=== PATIENT | male | born 1945 | race Caucasian/White ===

== ENCOUNTER 2016-08-24 01:21 | Observation (INO) | payer OTHER ==
--- NOTE | 2016-08-24 01:28 | EDPHY ---
H & P Time Seen by Provider: 08/24/16 01:26 HPI/ROS: CHIEF COMPLAINT: Forehead laceration HISTORY OF PRESENT ILLNESS: Patient is a 71-year-old man who comes to the emergency department by EMS complaining forehead laceration. He states that he fell earlier this evening. He does not remember the fall. He thinks that he tripped. He does have a seizure disorder and takes Dilantin. He does not think that he had a seizure. He does take Dilantin faithfully. He does not take any blood thinners. Denies neck pain back pain Center. He is moving all extremities. He has been ambulatory. He does state that he had for 5 glasses of wine this evening but does not think that he is intoxicated or that that is why he fell. REVIEW OF SYSTEMS: Constitutional: denies: chills, fever, recent illness, recent injury EENTM: See HPI denies: blurred vision, double vision, nose congestion Respiratory: denies: cough, shortness of breath Cardiac: denies: chest pain, irregular heart rate, lightheadedness, palpitations Gastrointestinal/Abdominal: denies: abdominal pain, diarrhea, nausea, vomiting, blood streaked stools Genitourinary: denies: dysuria, frequency, hematuria, pain Musculoskeletal: denies: joint pain, muscle pain Skin: denies: lesions, rash, jaundice, bruising Neurological: denies: headache, numbness, paresthesia, tingling, dizziness, weakness Hematologic/Lymphatic: denies: blood clots, easy bleeding, easy bruising Immunologic/allergic: denies: HIV/AIDS, transplant EXAM: GENERAL: Well-appearing, well-nourished and in no acute distress. HEAD: Atraumatic, normocephalic. EYES: Extraocular muscles intact, Pupils equal round and reactive to light, extraocular movements intact, sclera anicteric, conjunctiva are normal. ENT: TMs normal, nares patent, oropharynx clear without exudates. Moist mucous membranes. NECK: Normal range of motion, supple without lymphadenopathy or JVD. LUNGS: Breath sounds clear to auscultation bilaterally and equal. No wheezes rales or rhonchi. HEART: Regular rate and rhythm without murmurs, rubs or gallops. ABDOMEN: Soft, nontender, normoactive bowel sounds. No guarding, no rebound. No masses appreciated. BACK: No CVA tenderness, no spinal tenderness, step-offs or deformities EXTREMITIES: Normal range of motion, no pitting or edema. No clubbing or cyanosis. NEUROLOGICAL: Cranial nerves II through XII grossly intact. Normal speech, normal gait. 5/5 strength, normal movement in all extremities, normal sensation PSYCH: Normal mood, normal affect. SKIN: 4 cm laceration to right forehead, large hematoma, crepitus or deformity. Source: Patient, EMS Exam Limitations: No limitations - Medical/Surgical History Hx Asthma: No Hx Chronic Respiratory Disease: No Hx Diabetes: No Hx Cardiac Disease: No Hx Renal Disease: No Hx Cirrhosis: No Hx Alcoholism: No Other PMH: Seizures - Family History Significant Family History: No pertinent family hx - Social History Alcohol Use: Occasionally Drug Use: None Constitutional: Initial Vital Signs Temperature (C) 36.6 C 08/24/16 01:21 Heart Rate 72 08/24/16 01:21 Respiratory Rate 16 08/24/16 01:21 O2 Sat (%) 86 L 08/24/16 01:21 O2 Delivery Mode Nasal Cannula O2 (L/minute) 3 Allergies/Adverse Reactions: Penicillins Allergy (Verified 10/07/10 19:42) Home Medications: Medication Instructions Recorded ASPIRIN [Easprin 975mg] 0 mg PO DAILY 10/07/10 Atorvastatin Calcium [Lipitor 10 0 mg PO DAILY 10/07/10 mg] PHENYTOIN SODIUM EXTENDED 0 mg PO 10/07/10 [Dilantin] Lisinopril 08/24/16 Medical Decision Making - Diagnostics EKG Interpretation: An EKG obtained and was read and documented in trace view. Please see trace view for full reading and report. Sinus rhythm first-degree AV block Imaging Results: X-ray: chest x-ray was obtained. I viewed the images myself on the PACS system. My interpretation of the images is: negative for acute disease . The radiologist interpretation is pending. Imaging: Discussed imaging studies w/ scallop dredger Radiologist Procedures: Procedure: Laceration repair. Verbal consent was obtained from the patient. The for cm forehead laceration was anesthetized with 0.5% bupivacaine and epinephrine locally infiltrated. The wound was irrigated copiously according to protocol, draped and explored to its base. It was approximately 1 cm deep. There were no deep structures involved. No tendon, nerve, or vascular injury was identified when explored. No foreign body was identified. The wound was repaired with 4.0 Prolene, 14 sutures, continuous. The wound repair was simple without wound margin revisement or multiple flap alignment. The procedure was performed by myself. A dressing was then placed with sterile gauze and bacitracin. ED Course/Re-evaluation: 2:10 a.m. I discussed the case with the patient. He is not happy that he has to stay in the hospital. He tells me that he has had bleeding in his head before. I spoke with Dr. Lew from Neurosurgery who is reviewing the images and will call back. Head CT ordered in this adult patient for trauma for the following indication: Loss of consciousness 2:15 a.m. I discussed the case with Dr. Lew who recommends admission to the Trauma Service to the [facility] versus observation floor. He states that if the patient is reliable he could possibly go home. Patient desaturates to 88% while asleep. This is likely due to his alcohol intoxication and possible baseline. Discussed the case with Dr. Castillo who will admit. Differential Diagnosis: Partial list of the Differential diagnosis considered include but were not limited to; intracranial hemorrhage, laceration, intoxication, seizure, facial fracture, cervical spine injury and although unlikely based on the history and physical exam, I also considered assault, infection. Critical Care Time: Critical care time spent by me, Dr. Henry exclusive with this patient was 35 minutes, exclusive of the PA time exclusive of procedures. The organ system that was at risk was neurologic and I gave elevated head of bed, vital sign monitoring, consultation and admission, to prevent worsening of the patient's condition - Data Points Laboratory Results: Laboratory Results 08/24/16 01:10 08/24/16 01:10 08/24/16 08/24/16 08/24/16 01:10 01:10 01:10 WBC 7.75 10^3/uL 10^3/uL (3.80-9.50) RBC 3.99 10^6/uL L 10^6/uL (4.40-6.38) Hgb 14.4 g/dL g/dL (13.7-17.5) Hct 40.1 % % (40.0-51.0) MCV 100.5 fL H fL (81.5-99.8) MCH 36.1 pg H pg (27.9-34.1) MCHC 35.9 g/dL g/dL (32.4-36.7) RDW 11.8 % % (11.5-15.2) Plt Count 183 10^3/uL 10^3/uL (150-400) MPV 9.8 fL fL (8.7-11.7) Neut % (Auto) 51.9 % % (39.3-74.2) Lymph % (Auto) 32.1 % % (15.0-45.0) [place] % (Auto) 12.6 % % (4.5-13.0) Eos % (Auto) 1.4 % % (0.6-7.6) Baso % (Auto) 0.8 % % (0.3-1.7) Nucleat RBC Rel Count 0.0 % % (0.0-0.2) Absolute Neuts (auto) 4.02 10^3/uL 10^3/uL (1.70-6.50) Absolute Lymphs (auto) 2.49 10^3/uL 10^3/uL (1.00-3.00) Absolute Monos (auto) 0.98 10^3/uL H 10^3/uL (0.30-0.80) Absolute Eos (auto) 0.11 10^3/uL 10^3/uL (0.03-0.40) Absolute Basos (auto) 0.06 10^3/uL 10^3/uL (0.02-0.10) Absolute Nucleated RBC 0.00 10^3/uL 10^3/uL (0-0.01) Immature Gran % 1.2 % H % (0.0-1.1) Immature Gran # 0.09 10^3/uL 10^3/uL (0.00-0.10) PT 12.4 SEC SEC (12.0-15.0) INR 0.93 (0.83-1.16) APTT 29.3 SEC SEC (23.0-38.0) Sodium 132 mEq/L L mEq/L (134-144) Potassium 3.4 mEq/L L mEq/L (3.5-5.2) Chloride 93 mEq/L L mEq/L (97-110) Carbon Dioxide 26 mEq/l mEq/l (22-31) Anion Gap 13 mEq/L mEq/L (8-16) BUN 9 mg/dL mg/dL (7-23) Creatinine 0.6 mg/dL L mg/dL (0.7-1.3) Estimated GFR > 60 Glucose 107 mg/dL H mg/dL (70-100) Calcium 8.7 mg/dL mg/dL (8.5-10.4) Phenytoin 19.9 mcg/mL mcg/mL (10.0-20.0) Ethyl Alcohol 273 mg/dL H mg/dL (0-10) Departure - Departure Disposition: [facility] Inpatient Acute Clinical Impression: Subarachnoid hemorrhage Forehead laceration Qualifiers: Encounter type: initial encounter Qualified Code(s): S01.81XA - Laceration without foreign body of other part of head, initial encounter Condition: Critical
[2016-08-24 01:40] LABS: % IMMATURE GRANULYOCYTES 1.2 % (0.0-1.1); ABSOLUTE IMMATURE GRANULOCYTES 0.09 10^3/uL (0.00-0.10); ADD DIFF? NO; ADD MORPH? NO; ADD SCAN? NO; ATYPICAL LYMPHOCYTE FLAG 30 (0-99); FRAGMENT RBC FLAG 0 (0-99); HEMATOCRIT 40.1 % (40.0-51.0); HEMOGLOBIN 14.4 g/dL (13.7-17.5); LEFT SHIFT FLG 0 (0-99); LIPEMIA HEMOLYSIS FLAG 90 (0-99); MEAN CELL HEMOGLOBIN 36.1 pg (27.9-34.1); MEAN CELL HEMOGLOBIN CONCENTR. 35.9 g/dL (32.4-36.7); MEAN CELL VOLUME 100.5 fL (81.5-99.8); MEAN PLATELET VOLUME 9.8 fL (8.7-11.7); PLATELET CLUMPS FLAG 10 (0-99); PLATELET COUNT 183 10^3/uL (150-400); RED BLOOD CELL COUNT 3.99 10^6/uL (4.40-6.38); RED CELL DISTRIBUTION WIDTH 11.8 % (11.5-15.2)
--- NOTE | 2016-08-24 01:44 | CPEKG ---
Heart Rate: 75 RR Interval: 800 P-R Interval: 256 QRSD Interval: 102 QT Interval: 424 QTC Interval: 474 P [place]: -16 QRS [place]: 74 T Wave [place]: -59 EKG Severity - ABNORMAL ECG - EKG Impression: SINUS RHYTHM EKG Impression: FIRST DEGREE AV BLOCK EKG Impression: BORDERLINE T ABNORMALITIES, INFERIOR LEADS Electronically Signed By: Kp Henry 24-Aug-2016 01:45:55
[2016-08-24 01:51] LABS: ANION GAP 13 mEq/L (8-16); CALCIUM 8.7 mg/dL (8.5-10.4); CARBON DIOXIDE 26 mEq/l (22-31); CHLORIDE 93 mEq/L (97-110); CREATININE 0.6 mg/dL (0.7-1.3); ETHANOL SERUM 273 mg/dL (0-10); GLOMERULAR FILTRATION RATE > 60; GLUCOSE 107 mg/dL (70-100); POTASSIUM 3.4 mEq/L (3.5-5.2); SODIUM 132 mEq/L (134-144)
[2016-08-24 01:52] LABS: INR 0.93 (0.83-1.16); PROTIME(PATIENT) 12.4 SEC (12.0-15.0)
[2016-08-24 01:57] LABS: APTT 29.3 SEC (23.0-38.0)
[2016-08-24] MEDS ORDERED: ONDANSETRON 4 MG/2 ML VIAL IVP PRN (02:31)
[2016-08-24] MEDS ORDERED: HYDROCODONE/APAP 5/325 TAB PO PRN (02:31)
[2016-08-24] MEDS ORDERED: ACETAMINOPHEN 325 MG TAB PO PRN (02:31)
--- NOTE | 2016-08-24 03:12 | GHP ---
[f rep st] HISTORY AND PHYSICAL CHIEF COMPLAINT: Trauma. HISTORY OF PRESENT ILLNESS: The patient is a 71-year-old man who was drinking alcohol earlier this morning when he slipped and struck his head on a counter. He said he did not lose consciousness. There was a substantial amount of blood , and he presented via EMS. PAST MEDICAL HISTORY: Seizure disorder, hyperlipidemia, coronary artery disease. Hypertension. MEDICATIONS: Include Dilantin, lisinopril, aspirin, and atorvastatin. PAST SURGICAL HISTORY: Includes appendectomy and rotator cuff. SOCIAL HISTORY: He was previously in the [employer]. 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 He worked at [employer]. He does not drink alcohol daily but was drinking in excess tonight. He does not use tobacco products. FAMILY HISTORY: Noncontributory. ALLERGIES: Penicillin. PHYSICAL EXAMINATION: VITAL SIGNS: 36.6, 72, 16, 110/72, 93% on 2 L. GENERAL : Very pleasant. Sitting up in gurney. He has blood throughout his hair and chest. He is currently being cleaned. HEENT: He has a large laceration over his right frontal forehead that is actively bleeding. It will stop with compression. Calvarium is not exposed. Pupils are equal, round, reactive to light. Slight proptosis. He has earwax in his canals, but no obvious hemotympanum or otorrhea. No rhinorrhea. No midface instability. Teeth fit together normally. NECK: No cervical spine tenderness. He has full range of motion. He was not wearing a C-collar when I evaluated him. LUNGS: Clear to auscultation bilaterally. No increased work of breathing. CARDIAC: Regular rate. ABDOMEN: Protuberant but soft, nondistended, nontender. MUSCULOSKELETAL : 5/5 strength, upper and lower extremities. NEURO: 2 through 12 grossly intact. His GCS is 15. RESULTS REVIEWED: I personally reviewed the results of his CT scan. Your can see the contusion on his right forehead, possible subarachnoid hemorrhage, and his blood alcohol level is 273. IMPRESSION AND PLAN: The patient is a 71-year-old status post fall with a large forehead laceration and possible subarachnoid hemorrhage. He does not think that this was a seizure. His oxygen saturation dipped slightly in the emergency room, and therefore, he will be admitted for observation. Neurosurgery will see him in the morning. His laceration will be repaired while he is in the ED. He can have a regular diet. I prefer that he just try Tylenol for pain, but I have written for other medication should he have breakthrough pain. He states he has never had problems with withdrawal, so I have not put him on the CIWA protocol at this time, but we will certainly monitor for that. /[id number]/MODL MTDD
[2016-08-24 05:35] LABS: HEMATOCRIT 35.9 % (40.0-51.0); HEMOGLOBIN 12.4 g/dL (13.7-17.5)
--- NOTE | 2016-08-24 07:51 | TRAUMAPN ---
Assessment/Plan: 71yo M s/p fall c head lac and ?SAH - Neuro: neuro intact, CT read last evening by NSG, they will eval today but likely no intervention or follow up scans needed. Patient completely nonfocal and has good pain control - Pulm: DVAE, lungs clear. - CV: HDS - Abd: Obese, soft, NTTP - Renal: voiding, UOP appropriate. - ID: afebrile, no abx - Dispo: needs nsg and IM eval. Plan for d/c once cleared by PT Subjective: Doing well, other than being cold has no complaints Objective: Vital Signs Temp Pulse Resp BP Pulse Ox 36.8 C 86 16 117/77 90 L 08/24/16 03:17 08/24/16 03:17 08/24/16 03:17 08/24/16 03:17 08/24/16 03:17 Laboratory Results 08/24/16 05:09 PT 12.4 SEC (12.0-15.0) 08/24/16 01:10 INR 0.93 (0.83-1.16) 08/24/16 01:10 Physical Exam - Physical Exam General Appearance: WD/WN, alert, no apparent distress EENT: PERRL/EOMI Neck: non-tender, full range of motion, supple Respiratory: chest non-tender, lungs clear Cardiac/Chest: normal peripheral pulses, regular rate, rhythm Abdomen: normal bowel sounds, non-tender, soft Skin: other (R head lac c/d/i, will need stitches removed in 10-14 days ) Neuro/Psych: no motor/sensory deficits, alert, normal mood/affect, oriented x 3
[2016-08-24] MEDS ORDERED: NS 1,000 ML IV ONE (09:40)
--- NOTE | 2016-08-24 10:07 | GCON ---
[f rep st] CONSULTATION HOSPITAL COURSE, HISTORY, AND MAJOR MEDICAL FINDINGS: The patient is a 71-year- old gentleman who was at home drinking on 08/23. He states that he turned around and slipped and struck his head on the counter. He did not lose consciousness at that time. He did present to [facility] emergency room via EMS. This morning, he denies any headache, nausea, vomiting, dizziness, any numbness, tingling, pain or weakness, any loss of bowel or bladder control. He takes a baby aspirin at baseline, and this is just for general overall health. REVIEW OF SYSTEMS: Review of systems is negative, other than what is stated in the HPI. Please see pertinent negatives and pertinent positives. PAST MEDICAL HISTORY: Significant for a seizure disorder, hyperlipidemia, coronary artery disease, hypertension. PAST SURGICAL HISTORY: Significant for an appendectomy and rotator cuff repair. ALLERGIES: Penicillin. HOME MEDICATIONS: Dilantin, lisinopril, aspirin, and atorvastatin. SOCIAL HISTORY: The patient is a prior Marine. He has worked at [employer] in the past. He states that he normally does not drink alcohol daily, just usually every other day and is typically wine. He quit smoking several years ago. He does live alone but does have friends and family in the area. FAMILY HISTORY: Negative for strokes. There is a history of cancer in his father. PHYSICAL EXAM: VITALS: BP is 86/58. His heart rate is 74. His respiratory rate is 90 on 2 L nasal cannula. Temp is 37.2. GENERAL: Patient is in no acute distress. He is alert and oriented x3. Answers questions appropriately. His affect is appropriate for the given situation. NEUROLOGIC: Cranial nerves 2-12 are grossly intact. EOMI and PERRLA. The patient is a 5/5, except his left dorsiflexion, and EHL is a 1/5. Patient states that this is at his baseline. Negative Doug's bilaterally, 2+ patellar reflexes bilaterally. DIAGNOSTIC REVIEW: Patient underwent a head CT upon coming into the emergency room, which demonstrated a small traumatic subarachnoid hemorrhage in the right sylvian fissure. ASSESSMENT/PLAN: The patient is a 71-year-old gentleman who fell and struck his head on the counter, who does have a small right sylvian fissure traumatic subarachnoid hemorrhage. At this point in time, the patient does not require any acute neurosurgical intervention. We discussed with the patient holding his aspirin until followup with his primary care provider in approximately 1 week. The patient will have PT ordered this morning. The patient is also slightly hypotensive this morning. Will go ahead and order a fluid bolus. Appreciate Trauma's primary medical management of this patient. The patient was seen both by Dr. Lew and myself. If there are any further questions or concerns regarding this patient, or any change in neurologic or motor exam, please notify Neurosurgery. STAFF ADDENDUM: Small right sylvian traumatic SAH. He says he has been getting dizzy and light headed a lot lately. He may be having bouts of hypotension from his antihypertensives. Recommend followup with his PCP. No neurosurgical followup necessary but happy to see him back in the future if he would like. /[id number]/MODL MTDD
[2016-08-24] MEDS: PHENYTOIN SODIUM EXTENDED 100 MG CAP PO SCH ×2 (11:09→20:20)
--- NOTE | 2016-08-24 11:22 | GCON ---
[f rep st] CONSULTATION DATE OF CONSULTATION: 08/24/[address] Refugio Acuna. REASON FOR CONSULTATION: Medical evaluation. HISTORY OF PRESENT ILLNESS: The patient is a 71-year-old male who had been drinking alcohol early o n the morning of 08/23/2016 when he slipped and struck his head on the counter. He says he did not lose consciousness, and he was brought to the emergency room. He tells me during my a evaluation th at throughout the week the patient had been feeling dizzy and lightheaded every time he tried to get up to ambulate. He associates this to the fact that he is on blood pressure medication, and that h is blood pressure had been running low. I reviewed his alcohol consumption with him; however, he is not very forthcoming with this information and feels that his dizziness and reason for fall are sec ondary to a low blood pressure. PAST MEDICAL HISTORY: Seizure disorder, hyperlipidemia, coronary artery disease, hypertension. PAST SURGICAL HISTORY: Appendectomy and rotator cuff repair. MEDICATIONS: Dilantin, lisinopril, aspirin, Pravachol, amlodipine. REVIEW OF SYSTEMS: The patient denies any nausea vomiting, diarrhea. Denies any fever sweats or ni ght chills. Denies any dyspnea, shortness of breath, or chest pain. He does state that he has been feeling dizzy over the last week when getting up to ambulate. A comprehensive 10-point review of s ystems is negative other than those noted. SOCIAL HISTORY: The patient denies drinking alcohol on a daily basis but does confirm drinking in e xcess on occasion. He denies any tobacco use. FAMILY HISTORY: Reviewed and noncontributory. ALLERGIES: Penicillin. PHYSICAL EXAM: GENERAL: The patient is alert, in no acute distress. VITAL SIGNS: Afebrile at 37. 2, pulse 74, respiratory rate 16, blood pressure is 86/58, saturating 90% on 2 L. HEENT: Traumatic , large laceration over the right frontal forehead with swelling. Pupils are equal, round, and reac tive to light. NECK: Supple. LUNGS: Clear to auscultation bilaterally. No rhonchi or wheezes no qiana. CARDIOVASCULAR: Regular rate and rhythm. No gallop or murmur appreciated. GASTROINTESTINAL/ ABDOMEN: Bowel sounds are positive. Soft and nontender. There is no guarding or rigidity noted. EXTREMITIES: Within normal limits. There is no clubbing or cyanosis appreciated. There is 5/5 str ength in all 4 extremities. NEUROLOGIC: Patient is focally intact. SKIN: Without rashes or lesio ns. LABORATORY DATA: Hemoglobin 12.4 with a hematocrit of 35.9. The patient's MCV is elevated at 100.5 . Potassium is 3.4 with a chloride of 93, blood alcohol is 273. RADIOLOGICAL STUDIES: 1. CT of the cervical spine. 2. CT of the head. ASSESSMENT AND PLAN: The patient is a 71-year-old gentleman who fell and struck his head. He has b markie evaluated and diagnosed with. 1. Small right sylvian fissure. He had received a consultation from Neurosurgery. His aspirin rip l be held and he will follow up with his primary care physician in 1 week. 2. History of seizure disorder. Will continue the patient's previously prescribed Dilantin. 3. History of hypertension. During this hospitalization, the patient is hypotensive. He is receiv ing a fluid bolus, and his antihypertensive medications have been held. He did express to me that darin zavala has been dizzy all week and feels that this is attributed to a low blood pressure. He has a blood pressure cuff at home and will continue to monitor his blood pressure in the outpatient setting and follow with his primary care physician at [place]. It is recommended that the patient's antihyperte nsive blood pressure medications be discontinued at the time of disposition and for him to continue with his primary care provider in the outpatient setting. 4. Alcohol use. I have reviewed with the patient, who is in agreement, that he should not drink in excess. 5. Acute alcohol intoxication. This has resolved with no signs of withdrawal at this time currentl y. The patient will likely be discharged home with physical therapy and potentially home health car e. We will continue to follow along during the patient's hospitalization and assist in his manageme nt. Thank you for the consult. /[id number]/MODL
[2016-08-24] MEDS ORDERED: SODIUM CL NASAL 45 ML BTL EACHNARE PRN (12:34)
[2016-08-24] MEDS ORDERED: NON-FORMULARY NEW DRUG (Pravastatin Sodium [Pravachol] 80 MG) PO SCH (18:00)
[2016-08-24] MEDS ORDERED: PRAVASTATIN SODIUM 40 MG TAB PO SCH (18:00)
[2016-08-24 19:57] VITALS: TEMP 98.4
[2016-08-24] MEDS: CALCIUM CARB W/VIT D 500 MG TAB PO SCH (20:20)
[2016-08-25 04:54] VITALS: O2SAT 90
[2016-08-25 07:01] VITALS: RESP 16
[2016-08-25] MEDS: CALCIUM CARB W/VIT D 500 MG TAB PO SCH (08:32)
[2016-08-25] MEDS: PHENYTOIN SODIUM EXTENDED 100 MG CAP PO SCH (08:32)
[2016-08-25] MEDS ORDERED: METOPROLOL TARTRATE 25 MG TAB PO SCH (09:30)
--- NOTE | 2016-08-25 09:30 | GDS ---
[f rep st] DISCHARGE SUMMARY PRESENT ILLNESS: Patient was admitted yesterday through the emergency department after slipping and falling at home, striking his right forehead and hemorrhaging. [facility] scan of the head showed a small subarachnoid hematoma. His laceration was sutured closed. He had no other obvious injuries. CONDITION ON DISCHARGE: At the time of discharge, he was ambulating well, eating well, and mentatio n seemed normal. His right eye had some ecchymosis, but he described the vision this morning as nor mal. FINAL DIAGNOSES: 1. Fall, alcohol related. 2. Laceration, right eyebrow. DISPOSITION: Home. DISCHARGE INSTRUCTIONS: Sutures need to be removed approximately Friday or this week. He can follow up with his [place] physician. /[id number]/MODL
[2016-08-25 09:43] VITALS: PULSE 90
--- NOTE | 2016-08-25 10:12 | HOSPPROG ---
Hospitalist Progress Note Assessment/Plan: DIAGNOSES: -closed head injury with small sylvian fissure hemorrhage -facial laceration and pre orbital hematoma without diplopia or ocular injury -gait instability with falls -Orthostatic symptoms resolved after hydration and off blood pressure medicine -chronic alcohol abuse and acute alcohol intoxication PLANS: -will check orthostatic vital signs today -It seems he is likely stable for discharge -continue off aspirin -Follow up with primary care physician in 1 week SUBJECTIVE: Feels much better today No Headache No nausea or vomiting No change in vision has been up walking with walker and doing well with that OBJECTIVE Vitals reviewed: stable Exam: alert oriented Facial laceration is stapled and looks good; pre orbital left hematoma unchanged skin warm dry color ok resps not labored lungs clear BSs heart regular abd soft nondistended nontender, bowel sounds present limbs warm, no edema iv site ok Objective: Vital Signs Temp Pulse Resp BP Pulse Ox 36.9 C 90 16 135/72 H 90 L 08/25/16 06:57 08/25/16 09:43 08/25/16 06:57 08/25/16 09:43 08/25/16 06:57 Laboratory Results 08/24/16 05:09 08/24/16 08/25/16 08/26/16 06:59 06:59 06:59 Intake Total 1150 Balance 1150 PT 12.4 SEC (12.0-15.0) 08/24/16 01:10 INR 0.93 (0.83-1.16) 08/24/16 01:10 ICD10 Worksheet Patient Problems: Problems Problem Status Onset Forehead laceration Acute Subarachnoid hemorrhage Acute
[2016-08-25 12:18] VITALS: BP 118/73
== END 2016-08-25 14:58 | disposition home or self-care (01) ==
LOC: EDUNIT# → F3N 03:11
PROVIDERS: ADMIT Surgery; ATTEND Surgery
PROC: 0HQ1XZZ Repair Face Skin, External Approach (ICD-10-PCS; principal; 2016-08-24)
DX: S06.6X0A Traumatic subarachnoid hemorrhage without loss of consciousness, initial encounter (principal); S01.81XA Laceration without foreign body of other part of head, initial encounter; S05.12XA Contusion of eyeball and orbital tissues, left eye, initial encounter; F10.120 Alcohol abuse with intoxication, uncomplicated; R42 Dizziness and giddiness; I95.9 Hypotension, unspecified; I10 Essential (primary) hypertension; W01.190A Fall on same level from slipping, tripping and stumbling with subsequent striking against furniture, initial encounter; Y92.019 Unspecified place in single-family (private) house as the place of occurrence of the external cause; G40.909 Epilepsy, unspecified, not intractable, without status epilepticus; I25.10 Atherosclerotic heart disease of native coronary artery without angina pectoris; R40.2411 Glasgow coma scale score 13-15, in the field [EMT or ambulance]; Y90.8 Blood alcohol level of 240 mg/100 ml or more
CPT/HCPCS: 12013; 70450; 71010; 72125; 92523; 93005; 97116; 97161; 97166; 97535; G0378; G8978; G8980; G9165; G9166; G0480